=== PATIENT | female | born 1940 | race Caucasian/White ===

== ENCOUNTER 2017-12-20 13:54 | Emergency (ER) | payer MEDICARE, OTHER ==
[~2017-12-20] VITALS: Ht 162.6 cm; Wt 88.6 kg
[~2017-12-20 13:54] MED LIST: AMOX500T2 PO; LEVO125T PO; OMEP20TA5 PO; PARO20TA6 PO
[2017-12-20] MEDS ORDERED: ondansetron 4mg rapidly disintigrating tab PO ONE (15:25)
[2017-12-20] MEDS ORDERED: meclizine 12.5mg tablet PO ONE (15:25)
[2017-12-20 15:44] LABS: BASOPHILS # (AUTO) 0.1 X10'3 (0-0.2); BASOPHILS % (AUTO) 0.8 % (0-1); EOSINOPHILS # (AUTO) 0.1 X10'3 (0-0.9); EOSINOPHILS % (AUTO) 1.6 % (0-6); HEMATOCRIT 42.8 % (35.0-45.0); HEMOGLOBIN 14.7 g/dl (12.0-16.0); LYMPHOCYTES # (AUTO) 1.5 X10'3 (1.1-4.8); LYMPHOCYTES % (AUTO) 20.9 % (21-51); MEAN CORPUSCULAR HEMOGLOBIN 31.3 PG (27.0-31.0); MEAN CORPUSCULAR HGB CONC 34.3 % (33.0-36.5); MEAN CORPUSCULAR VOLUME 91.1 FL (78-98); MEAN PLATELET VOLUME 7.9 FL (7.4-10.4); MONOCYTES # (AUTO) 0.5 X10'3 (0-0.9); MONOCYTES % (AUTO) 6.2 % (2-12); NEUTROPHILS # (AUTO) 5.2 X10'3 (1.8-7.7); NEUTROPHILS % (AUTO) 70.5 % (42-75); PLATELET COUNT 197 X10'3 (140-440); RED CELL DISTRIBUTION WIDTH 13.9 % (11.5-14.5); WHITE BLOOD COUNT 7.4 X10'3 (4.5-11.0)
[2017-12-20 15:59] LABS: ALANINE AMINOTRANSFERASE 14 U/L (12-78); ALBUMIN 3.5 G/DL (3.4-5.0); ALKALINE PHOSPHATASE 58 IU/L (46-116); ANION GAP 9 (8-16); ASPARTATE AMINO TRANSFERASE 16 U/L (10-37); BILIRUBIN,TOTAL 0.4 MG/DL (0.1-1.0); BLOOD UREA NITROGEN 13 MG/DL (7-18); CALCIUM 8.5 MG/DL (8.5-10.1); CHLORIDE 107 MMOL/L (99-107); CREATININE 0.62 MG/DL (0.40-0.90); GLUCOSE 95 MG/DL (70-104); MAGNESIUM 2.3 MG/DL (1.5-2.4); POTASSIUM 4.1 MMOL/L (3.5-5.1); SODIUM 142 MMOL/L (135-145); TOTAL CARBON DIOXIDE 25.8 MMOL/L (24-32); eGFR > 90 ML/MIN
[2017-12-20 16:21] LABS: CLARITY,URINE CLEAR (Clear); COLOR,URINE YELLOW (Yellow); GLUCOSE, URINE NEGATIVE (Neg); KETONES,URINE NEGATIVE (Neg); LEUKOCYTE ESTERASE ,URINE NEGATIVE (Neg); NITRITES, URINE NEGATIVE (Neg); OCCULT BLOOD,URINE NEGATIVE (Neg); PH,URINE 5.5 (4.8-8.0); PROTEIN,URINE NEGATIVE (Neg); UROBILINOGEN,URINE 0.2 E.U/dL (0.2-1.0)
[2017-12-20 16:30] LABS: UA COLLECTION TYPE CLN CATCH MIDSTREAM
[2017-12-20 16:41] VITALS: BP 175/92
[2017-12-20] MEDS ORDERED: MECL-111 PO (17:23)
[2017-12-20] MEDS ORDERED: ONDA4TAB12 PO (17:23)
== END 2017-12-20 17:36 | disposition home or self-care (01) ==
LOC: ER 13:54
DX: R42 Dizziness and giddiness (principal); R03.0 Elevated blood-pressure reading, without diagnosis of hypertension
CPT/HCPCS: 36415; 70450; 80053; 81003; 83735; 84484; 85025; 93005; 99285; J8597

== ENCOUNTER 2018-04-04 05:45 | Day surgery (SDC) | payer MEDICARE, OTHER ==
[2018-04-03 13:24] LABS: BASOPHILS # (AUTO) 0.1 X10'3 (0-0.2); EOSINOPHILS # (AUTO) 0.3 X10'3 (0-0.9); HEMATOCRIT 41.7 % (35.0-45.0); HEMOGLOBIN 14.1 g/dl (12.0-16.0); LYMPHOCYTES # (AUTO) 1.9 X10'3 (1.1-4.8); LYMPHOCYTES % (AUTO) 21.9 % (21-51); MEAN CORPUSCULAR HGB CONC 33.8 % (33.0-36.5); MEAN CORPUSCULAR VOLUME 91.9 FL (78-98); MEAN PLATELET VOLUME 8.8 FL (7.4-10.4); MONOCYTES # (AUTO) 0.7 X10'3 (0-0.9); NEUTROPHILS # (AUTO) 5.8 X10'3 (1.8-7.7); NEUTROPHILS % (AUTO) 66.1 % (42-75); PLATELET COUNT 199 X10'3 (140-440); RED BLOOD COUNT 4.54 X10'6 (4.20-5.60); RED CELL DISTRIBUTION WIDTH 14.2 % (11.5-14.5); WHITE BLOOD COUNT 8.8 X10'3 (4.5-11.0)
[2018-04-03 13:34] LABS: PARTIAL THROMBOPLASTIN TIME 27 SECONDS (22-32); PROTHROMBIN TIME 10.7 SECONDS (9.0-12.0)
[2018-04-03 13:51] LABS: ANION GAP 9 (8-16); BLOOD UREA NITROGEN 14 MG/DL (7-18); BUN/CREATININE RATIO 19.7 (6.6-38.0); CALCIUM 8.5 MG/DL (8.5-10.1); CHLORIDE 106 MMOL/L (99-107); CREATININE 0.71 MG/DL (0.40-0.90); GLUCOSE 107 MG/DL (70-104); POTASSIUM 3.8 MMOL/L (3.5-5.1); SODIUM 140 MMOL/L (135-145); TOTAL CARBON DIOXIDE 24.6 MMOL/L (24-32); eGFR 79 ML/MIN
[2018-04-04] VITALS (15 sets, daily range): BP systolic 97–143; BP diastolic 45–75
[~2018-04-04] VITALS: Ht 162.6 cm; Wt 82.1 kg
[~2018-04-04 05:45] MED LIST changes: +MECL-111 PO; +ONDA4TAB12 PO
[2018-04-04] MEDS ORDERED: BRIM5DRO2 EACHEYE (06:20)
[2018-04-04] MEDS ORDERED: PARO20TA6 PO (06:20)
[2018-04-04] MEDS ORDERED: LEVO125T PO (06:20)
[2018-04-04] MEDS ORDERED: MAGN400C PO (06:20)
[2018-04-04] MEDS ORDERED: LORazepam 0.5 MG tablet PO PRN (06:20)
[2018-04-04] MEDS ORDERED: CALC-336 PO (06:20)
[2018-04-04] MEDS ORDERED: CHOL2000 PO (06:20)
[2018-04-04] MEDS ORDERED: XAL0.005OS OP (06:20)
[2018-04-04] MEDS ORDERED: OMEP20CA10 PO (06:20)
[2018-04-04] MEDS ORDERED: diphenhydrAMINE 25mg capsule PO PRN (06:20)
[2018-04-04] MEDS ORDERED: CYAN50003 PO (06:20)
[2018-04-04] MEDS: normal saline 1000ml 1,000 ML IV SCH ×2 (06:29→14:09)
[2018-04-04] MEDS ORDERED: nitroGLYCERIN-Tridil 50MG/D5W 250 ML IV ONE (06:47)
[2018-04-04] MEDS ORDERED: midazolam 2 mg/2 ml injection ONE (06:47)
[2018-04-04] MEDS ORDERED: heparin 1,000unit/ml 10ml vial 10 ML ONE (06:48)
[2018-04-04] MEDS ORDERED: iohexol 350 MG/ML 50ML vial IV ONE (06:48)
[2018-04-04] MEDS ORDERED: fentaNYL/PF 50MCG/1 ML 2ML syringe ONE ×2 (06:48→08:34)
[2018-04-04] MEDS ORDERED: iohexol 350 MG/1 ML 200ml bottle ONE (06:48)
[2018-04-04] MEDS ORDERED: LIDOcaine 1% w/EPI 1:100,000 30ml vial (MDV) ONE (06:48)
[2018-04-04] MEDS ORDERED: heparin 1,000 UNITS/NS 500ml 500 ML ONE (07:59)
[2018-04-04 09:16] LABS: ISTAT Hct MIX 37 %PCV (35-48); ISTAT O2 SATURATION MIX VENOUS 67 % (60-80); ISTAT SOURCE MIX
[2018-04-04 09:16] LABS: ISTAT HGB ART 12.6 g/dl (12.0-16.0); ISTAT Hct ART 37 %PCV (35-48); ISTAT O2 SATURATION ARTERIAL 98 % (95-98); ISTAT SOURCE ART
[2018-04-04] MEDS ORDERED: HYDROcodone/acetaminophen 10/325mg tab PO PRN (10:25)
[2018-04-04] MEDS ORDERED: ondansetron/PF 4mg/2ml inj IV PRN (10:25)
[2018-04-04] MEDS ORDERED: cyclobenzaprine 10mg tablet PO ONE (11:40)
== END 2018-04-04 18:00 | disposition home or self-care (01) ==
LOC: SSTAY O 05:45
PROVIDERS: ATTEND Internal Medicine Cardiovascular Disease
DX: I25.118 Atherosclerotic heart disease of native coronary artery with other forms of angina pectoris (principal); E78.5 Hyperlipidemia, unspecified; I44.4 Left anterior fascicular block; K21.9 Gastro-esophageal reflux disease without esophagitis; E03.9 Hypothyroidism, unspecified; Z88.2 Allergy status to sulfonamides; Z88.1 Allergy status to other antibiotic agents; Z87.09 Personal history of other diseases of the respiratory system; Z79.01 Long term (current) use of anticoagulants; Z96.653 Presence of artificial knee joint, bilateral; Z86.718 Personal history of other venous thrombosis and embolism; Z96.642 Presence of left artificial hip joint; Z90.710 Acquired absence of both cervix and uterus; Z79.899 Other long term (current) drug therapy
CPT/HCPCS: 36415; 80048; 82803; 83880; 85014; 85025; 85610; 85730; 93005; 93460; 93567; 99152; 99153; A6257; A6449; C1769; J1644; J2250; J2405; J3010; J3490; J7030; Q0163; Q9967; A4620

== ENCOUNTER 2025-01-29 07:09 | Day surgery (SDC) | payer MEDICARE ==
[2025-01-28 12:21] LABS: BASOPHILS # (AUTO) 0.1 X10'3 (0-0.2); BASOPHILS % (AUTO) 0.8 % (0-1); EOSINOPHILS # (AUTO) 0.1 X10'3 (0-0.9); EOSINOPHILS % (AUTO) 1.8 % (0-6); HEMATOCRIT 41.7 % (35.0-45.0); HEMOGLOBIN 13.8 g/dl (12.0-16.0); LYMPHOCYTES # (AUTO) 1.2 X10'3 (1.1-4.8); LYMPHOCYTES % (AUTO) 15.8 % (21-51); MEAN CORPUSCULAR HEMOGLOBIN 30.3 PG (27.0-31.0); MEAN CORPUSCULAR HGB CONC 33.2 g/dL (33.0-36.5); MEAN CORPUSCULAR VOLUME 91.4 FL (78-98); MEAN PLATELET VOLUME 8.3 FL (7.4-10.4); MONOCYTES # (AUTO) 0.5 X10'3 (0-0.9); MONOCYTES % (AUTO) 6.5 % (2-12); NEUTROPHILS # (AUTO) 5.6 X10'3 (1.8-7.7); NEUTROPHILS % (AUTO) 75.1 % (42-75); PLATELET COUNT 246 X10'3 (140-440); RED BLOOD COUNT 4.56 X10'6 (4.20-5.60); RED CELL DISTRIBUTION WIDTH 14.7 % (11.5-14.5); WHITE BLOOD COUNT 7.4 X10'3 (4.5-11.0)
[2025-01-29] VITALS (24 sets, daily range): BP systolic 82–111; BP diastolic 35–63; PULSE 50–79; RESP 11–18; TEMP 98; O2SAT 96–100
[~2025-01-29] VITALS: Ht 162.6 cm; Wt 69.9 kg
[~2025-01-29 07:09] MED LIST changes: -AMOX500T2 PO; +BRIM5DRO2 EACHEYE; +CALC-336 PO; +CHOL2000 PO; +CYAN50007 PO; +MAGN400C PO; -MECL-111 PO; +OMEP20CA15 PO; -OMEP20TA5 PO; -ONDA4TAB12 PO; +XAL0.005OS OP
[2025-01-29] MEDS ORDERED: LORazepam 0.5 MG tablet PO ONE (07:35)
[2025-01-29] MEDS ORDERED: atropine 0.1mg/ml 10ml syringe IV ONE (07:35)
[2025-01-29] MEDS ORDERED: amiodarone 150mg/dext, iso-os 100 ML IV ONE (07:35)
[2025-01-29] MEDS ORDERED: diphenhydrAMINE 25mg capsule PO ONE (07:35)
[2025-01-29] MEDS ORDERED: LEVO112T5 PO (07:45)
[2025-01-29] MEDS ORDERED: EMPA10TA PO (07:47)
[2025-01-29] MEDS ORDERED: CARV-50 PO (07:47)
[2025-01-29] MEDS ORDERED: APIX5TAB3 PO (07:47)
[2025-01-29] MEDS ORDERED: SACU1TAB PO (07:47)
[2025-01-29] MEDS ORDERED: ROSU40TA89 PO (07:47)
[2025-01-29] MEDS ORDERED: SPIR25TA5 PO (07:47)
[2025-01-29] MEDS ORDERED: AMI200T PO (07:47)
[2025-01-29] MEDS ORDERED: FURO20TA4 PO (07:47)
[2025-01-29 08:32] LABS: ALBUMIN 3.3 G/DL (3.4-5.0); ANION GAP 8 (8-16); BLOOD UREA NITROGEN 12 MG/DL (7-18); BUN/CREATININE RATIO 12.5 (10.0-20.0); CALCIUM 8.5 MG/DL (8.5-10.1); CHLORIDE 104 MMOL/L (99-107); CREATININE 0.96 MG/DL (0.40-0.90); GLUCOSE 72 MG/DL (70-104); INR 1.3 INR; POTASSIUM 4.3 MMOL/L (3.5-5.1); SODIUM 138 MMOL/L (135-145); TOTAL CARBON DIOXIDE 26.5 MMOL/L (24-32); eCRCL 36 ML/MIN; eGFR 55 ML/MIN
[2025-01-29] MEDS: normal saline 1000ml 1,000 ML IV SCH (09:11)
[2025-01-29] MEDS: MIDAZolam 1mg/ml 10ml vial IV ONE (09:12)
[2025-01-29] MEDS: morphine 10mg/ml inj. IV ONE (09:12)
[2025-01-29] MEDS: magnesium sulf-water 2g/50mL 50 ML IV ONE (09:22)
== END 2025-01-29 11:50 | disposition home or self-care (01) ==
LOC: SSTAY O 07:09
PROVIDERS: ATTEND Internal Medicine Cardiovascular Disease
DX: I48.0 Paroxysmal atrial fibrillation (principal); I48.19 Other persistent atrial fibrillation; I11.0 Hypertensive heart disease with heart failure; Z78.0 Asymptomatic menopausal state; I50.22 Chronic systolic (congestive) heart failure; E78.5 Hyperlipidemia, unspecified; Z95.2 Presence of prosthetic heart valve; I25.10 Atherosclerotic heart disease of native coronary artery without angina pectoris; Z90.710 Acquired absence of both cervix and uterus; Z98.42 Cataract extraction status, left eye; Z98.41 Cataract extraction status, right eye; Z88.2 Allergy status to sulfonamides; Z88.1 Allergy status to other antibiotic agents; Z96.653 Presence of artificial knee joint, bilateral; Z96.642 Presence of left artificial hip joint
CPT/HCPCS: 36415; 80048; 85025; 85610; 92960; 93005; J2250; J2270; J7030; J2274